=== PATIENT | female | born 1985 | race Caucasian/White ===

== ENCOUNTER 2017-09-02 20:57 | Outpatient (CLI) | payer MEDICAID, OTHER ==
[~2017-09-02] VITALS: Ht 162.6 cm; Wt 73.0 kg
[2017-09-02 21:47] LABS: ADD UMIC NO; UR ASCORBIC ACID 20 mg/dL (NEGATIVE); UR BILIRUBIN (Dip) NEGATIVE (NEGATIVE); UR BLOOD (Dip) NEGATIVE (NEGATIVE); UR CLARITY CLEAR (CLEAR); UR COLOR YELLOW (YELLOW); UR GLUCOSE (Dip) 3+ mg/dL (NEGATIVE); UR KETONES (Dip) TRACE mg/dL (NEGATIVE); UR LEUKOCYTE ESTERASE (Dip) NEGATIVE Leu/ul (NEGATIVE); UR NITRITE (Dip) NEGATIVE (NEGATIVE); UR TOTAL PROTEIN (Dip) NEGATIVE (NEGATIVE); UR UROBILINOGEN (Dip) NEGATIVE (NEGATIVE)
[2017-09-02 22:04] VITALS: BP 120/96; PULSE 97; RESP 18; Ht 162.6 cm; Wt 73.0 kg
[2017-09-02] MEDS ORDERED: PREN-32 PO (22:06)
[2017-09-02] MEDS ORDERED: TERBUTALINE 1 ML ONE (22:14)
[2017-09-02] MEDS ORDERED: TERBUTALINE 1 MG/ML INJ SC ONE (22:30)
[2017-09-02] MEDS ORDERED: NIFEdipine 10 MG CAP PO ONE ×2 (22:30→23:30)
[2017-09-02] MEDS: LACTATED RINGER'S 1,000 ML IV SCH ×2 (22:32→23:31)
--- NOTE | 2017-09-02 23:16 | RADRPT ---
PROCEDURE: ULTRASOUND BIOPHYSICAL PROFILE CLINICAL INDICATION: 32-year-old female with contractions for viability. TECHNIQUE: Multiple sonographic images were obtained in order to perform a biophysical profile The images were reviewed on a PACS workstation. COMPARISON: None. FINDINGS: The cervix appears closed and has a length of 3.9 cm measured endovaginally. There is a single viabl e intrauterine gestation. There is a vertex presentation. Cardiac activity is present at 122 beats per minute. The placenta is anterior. The results of the biophysical profile are as follows: breathing movement = 2/2 Gross body movement = 2/2 tone = 2/2 Qualitative amniotic fluid volume = 2/2 Amniotic fluid index equals 14.8 cm. This yields a biophysical profile score of vertex/8. IMPRESSION: Biophysical profile score is 8/8. .Bassam Olea MD, Date Time Electronically viewed and signed by .Bassam Olea MD, on 09/02/2017 23:15 .M/
--- NOTE | 2017-09-02 23:19 | RADRPT ---
PROCEDURE: ULTRASOUND OBSTETRICAL CLINICAL INDICATION: 32-year-old female with contractions for size and date determination . TECHNIQUE: Multiple sonographic images of the pelvis were obtained. The images were reviewed on a PACS workstation. COMPARISON: Ultrasound biophysical profile obtained concurrently. FINDINGS: There is a single viable intrauterine gestation. Cardiac activity is present with 139 beats per min christoph. There is a vertex presentation. Measurements were made in order to determine age. The res ults are as follows: BPD = 7.97 cm, HC = 28.83 cm, AC = 28.02 cm, FL = 6.03 cm. This yields and estimated gestational ag e of approximately 31 weeks 6 days. The estimated date of delivery is October 29, 2017. The EFW = 1 842 +/- 276 g (4 lb 1 oz). The GP is 75%. The placenta is anterior. There is no evidence for an abruption or placenta previa. IMPRESSION: 1. Single viable intrauterine gestation of approximately 31 weeks 6 days with vertex presentation. The estimated date of delivery is March 29, 2018. 2. The estimated weight is 1842 +/- 276 g (4 lb 1 oz). The GP is 75%. .Bassam Olea MD, Date Time Electronically viewed and signed by .Bassam Olea MD, MD on 09/02/2017 23:19 .M/
[2017-09-03] MEDS ORDERED: NIFEdipine 10 MG CAP PO ONE ×2 (00:30→01:00)
--- NOTE | 2017-09-03 03:16 | PN ---
Triage Information Date/Time Reason for visit: Uterine contractions Weeks of Gestation 30 5/7 weeks /Para Hypertention: none Additional information 32 Year-old with SIUP at 30 5/7 weeks presents with a chief complaint of ucs. She has been receiving her care with Dr Landaverde. She states good movement. She denies nausea, vomiting, shortness of breath, chest pain, headache, visual changes, vaginal bleeding or LOF. Objective Vital Signs Date Time Temp Pulse Resp B/P Pulse Ox O2 Delivery O2 Flow Rate FiO2 09/02/17 22:04 98.0 97 18 120/96 Room Air Heart Rate: 140's Contractions: < 5 Minutes Apart Exam General: Patient appears well, alert and oriented, NAD, appropriate mood and affect ABD: gravid, soft, non-tender. Back: No CVA tenderness (B/L) LE: No clubbing, cyanosis, edema, thigh or calf tenderness bilaterally FHT: 135 bpm , moderate variability with acceleration, no deceleration-category I Contractions: Q 1-3 min. Speculum exam: fibronectin collected, however as mixed with blood not sent to lab SVE: closed/thick/-3/ceph/intact membrane Results/Medications Results 24 hrs Laboratory Tests Test 09/02/17 21:00 Urine Color YELLOW Urine Clarity CLEAR Urine pH 6.0 Urine Specific Calvin 1.020 Urine Ketones TRACE A Urine Nitrite NEGATIVE Urine Bilirubin NEGATIVE Urine Urobilinogen NEGATIVE Urine Leukocyte Esterase NEGATIVE Urine Hemoglobin NEGATIVE Urine Glucose 3+ H Urine Total Protein NEGATIVE Medications Current Medications Lactated Ringer's (Lr) 1,000 ml @ 125 mls/hr Q8H IV Last administered on 09/02t 22:32; Admin Dose 125 MLS/HR; Start 09/02/17 at 22:12 Disposition: signed AMA Assessment/Plan 32 Year-old with SIUP at 30 5/7 weeks with PTC. fibronectin collected, however as mixed with blood not sent to lab. US performed with cL of3.9, JOSE: 14.1. FHR: No sign of metabolic acidosis- Category I. She received IVF and 3 dose of procardia, the ucs spaced out, however she still has irreg ucs. I strongly recommend further observation and repeat FFN again and if needed treatment with BMZ x2 and mag sulfate. I discussed risk with delivery including but not limited to IVH, retinopathy, respiratory complication , apnea, jaundice, [facility] ICU admission, [facility] neurodevelopment issues, NICU admission and even . She expressed understanding, states has another child at home, needs to take care of him. She signed the AMA and states will back if experiencing stronger ucs. I strongly recommend f/u with her primary OB tomorrow. Symptoms and sign of labor, preeclampsia, kick count discussed with patient, she voiced understanding. All of her questions answered. CATHY MEJIA Sep 03, 2017 03:15
== END 2017-09-03 03:06 | disposition home or self-care (01) ==
LOC: OBT 20:57 → L-D 20:59 → OBT 09-03 03:06
PROVIDERS: ATTEND Obstetrics & Gynecology
DX: O62.9 Abnormality of forces of labor, unspecified (principal); Z3A.30 30 weeks gestation of pregnancy; Z53.21 Procedure and treatment not carried out due to patient leaving prior to being seen by health care provider
CPT/HCPCS: 36415; 76815; 76817; 76818; 81003; 87086; 96360; 96361; J3105; J7120; Z7500; Z7610; G0463

== ENCOUNTER 2017-10-31 11:36 | Outpatient (CLI) | END 2017-10-31 14:08 | disposition home or self-care (01) ==

== ENCOUNTER 2017-11-03 02:26 | Inpatient (IN) | END 2017-11-05 13:25 | disposition home or self-care (01) | DRG 775 ==